=== PATIENT | male | born 1975 | race Caucasian/White ===

== ENCOUNTER 2017-02-13 21:51 | Emergency (ER) | payer BC ==
[~2017-02-13] VITALS: Ht 175.3 cm; Wt 75.0 kg
--- NOTE | 2017-02-13 22:00 | NUR ---
Pt presents to ER ambulatory, accompanied by spouse and daughter, with c/o laceration to right eyelid. Injury sustained during soccer game when pt was hit in face by someone's elbow. [place] occurred [place]. 1931. Pt continued to play in the game. Rates pain at 2/10.
[2017-02-13] MEDS ORDERED: LIDOCAINE PF 1% (XYLOCAINE) 2 ML VIAL INJ ONE (22:15)
[2017-02-13] MEDS ORDERED: SUMA100T3 PO (22:24)
[2017-02-13] MEDS ORDERED: BACITRACIN OINTMENT 0.9 GM PACKET TOP ONE (22:40)
[2017-02-13 22:47] VITALS: BP 124/83
== END 2017-02-13 22:48 | disposition home or self-care (01) ==
LOC: ED 21:57
DX: S01.111A Laceration without foreign body of right eyelid and periocular area, initial encounter (principal); W18.09XA Striking against other object with subsequent fall, initial encounter; Y93.66 Activity, soccer; Y92.830 Public park as the place of occurrence of the external cause
CPT/HCPCS: 12011; 99282; J2001